=== PATIENT | male | born 1985 | race Caucasian/White ===

== ENCOUNTER 2021-10-22 17:57 | Emergency (ER) | payer SELFPAY ==
[~2021-10-22] VITALS: Ht 172.7 cm; Wt 72.6 kg
[~2021-10-22 17:57] MED LIST: KEFLEX500 MG PO; TRAMADOL HCL50 MG PO; TRIMOX500 MG PO; VICODIN 500 MG-1 TAB PO
[2021-10-22 18:35] LABS: BILIRUBIN Negative (Negative); BLOOD Negative (Negative); CLARITY Clear (Clear); COLOR Yellow (Yellow); GLUCOSE Negative (Negative); KETONE Trace (Negative); LEUKO ESTERASE Negative (Negative); NITRITE Negative (Negative); SPECIFIC GRAVITY 1.025 (1.001-1.030)
[2021-10-22 18:53] LABS: BASO % 0.3 % (0.0-1.0); EOS # 0.1 10*3/uL (0.0-0.4); EOS % 0.6 % (1.0-4.0); HEMATOCRIT 45.3 % (42.0-52.0); LYMPH # 2.3 10*3/uL (1.3-4.4); LYMPH % 14.9 % (27.0-41.0); MEAN CORPUSCULAR HGB 31.6 pg (27.0-31.0); MONO # 0.6 10*3/uL (0.1-1.0); MONO % 3.9 % (3.0-9.0); NEUT # 12.3 10*3/uL (2.3-7.9); NEUT % 79.9 % (47.0-73.0); PLATELET COUNT AUTOMATED 236 10*3/uL (130-400); RED BLOOD COUNT 4.87 10*6/uL (4.50-5.90); RED CELL DISTRI WIDTH 12.9 % (0-14.5); WHITE BLOOD COUNT 15.4 10*3/uL (4.8-10.8)
[2021-10-22 19:04] LABS: BACTERIA TRACE; WBC 0-2 wbc/hpf (0-5)
[2021-10-22 19:11] LABS: ALBUMIN 4.1 gm/dl (3.1-4.5); ALKALINE PHOSPHATASE 90 U/L (45-117); BUN 22 mg/dl (7-24); CHLORIDE 107 mmol/L (98-107); CREATININE 0.82 mg/dL (0.70-1.30); LIPASE 63 U/L (73-393); POTASSIUM 3.6 mmol/L (3.5-5.1); SGOT/AST 20 IU/L (3-35); SGPT/ALT 31 U/L (12-78); SODIUM 138 mmol/L (136-145); TOTAL PROTEIN 7.7 gm/dL (6.4-8.2)
[2021-10-22] MEDS ORDERED: IBUPROFEN600 MG PO (20:56)
== END 2021-10-22 20:57 | disposition home or self-care (01) ==
LOC: ED 17:57
PROVIDERS: Physician Assistant
DX: N23 Unspecified renal colic (principal)

== ENCOUNTER 2023-12-13 15:56 | Emergency (ER) | payer SELFPAY ==
[~2023-12-13] VITALS: Wt 69.4 kg
[~2023-12-13 15:56] MED LIST changes: +IBUPROFEN600 MG PO
[2023-12-13] MEDS ORDERED: VIBRAMYCIN100 MG PO (16:31)
== END 2023-12-13 16:50 | disposition home or self-care (01) ==
LOC: ED 15:56
DX: L03.312 Cellulitis of back [any part except buttock and flank] (principal); Z98.890 Other specified postprocedural states

== ENCOUNTER 2024-01-29 23:52 | Emergency (ER) | payer SELFPAY ==
[~2024-01-29] VITALS: Ht 170.1 cm; Wt 68.0 kg
[~2024-01-29 23:52] MED LIST changes: +VIBRAMYCIN100 MG PO
[2024-01-30] MEDS ORDERED: Ondansetron Hydrochloride 4 MG/2 ML VIAL IV ONE (00:25)
[2024-01-30] MEDS ORDERED: Ketorolac Tromethamine 30 MG/ML VIAL IV ONE (00:25)
[2024-01-30 00:37] LABS: BILIRUBIN Negative (Negative); BLOOD Negative (Negative); CLARITY Clear (Clear); COLOR Yellow (Yellow); GLUCOSE Negative (Negative); KETONE Negative (Negative); LEUKO ESTERASE Negative (Negative); NITRITE Negative (Negative); PH 7.5 (4.5-8.0); UROBILINOGEN 0.2 E.U./dl (0.0-1.0)
[2024-01-30 00:52] LABS: RBC 0-2 rbc/hpf (0-2); WBC 0-2 wbc/hpf (0-5)
[2024-01-30] MEDS ORDERED: Tamsulosin Hydrochloride 0.4 MG CAP PO ONE (03:30)
[2024-01-30] MEDS ORDERED: HYDROCODONE-AC1 EAC1 PO (03:38)
[2024-01-30] MEDS ORDERED: ONDANSETRON4 MG SL (03:38)
[2024-01-30] MEDS ORDERED: FLOMAX0.4 MG PO (03:38)
== END 2024-01-30 03:42 | disposition home or self-care (01) ==
LOC: ED 23:52
PROVIDERS: Internal Medicine
DX: N20.9 Urinary calculus, unspecified (principal); N13.4 Hydroureter; R11.0 Nausea; R61 Generalized hyperhidrosis; Z98.890 Other specified postprocedural states